=== PATIENT | female | born 1990 | race Caucasian/White ===

== ENCOUNTER 2021-01-22 22:54 | Emergency (ER) | payer OTHER ==
[~2021-01-22] VITALS: Ht 162.6 cm; Wt 108.9 kg
[2021-01-23] MEDS ORDERED: NAPROSYN500 M1 PO (00:38)
[2021-01-23] MEDS ORDERED: ACETAMINOPHEN-1 EAC2 PO (00:38)
[2021-01-23 00:49] VITALS: BP 148/64
== END 2021-01-23 00:50 | disposition home or self-care (01) ==
LOC: M.ERS 22:54
DX: S59.801A Other specified injuries of right elbow, initial encounter (principal); Z98.51 Tubal ligation status; W18.30XA Fall on same level, unspecified, initial encounter; Y93.89 Activity, other specified; Y92.89 Other specified places as the place of occurrence of the external cause; Y99.8 Other external cause status